=== PATIENT | female | born 1945 | race African-American/Black ===

== ENCOUNTER 2018-10-23 13:24 | Emergency (ER) | payer OTHER ==
[~2018-10-23] VITALS: Ht 165.1 cm; Wt 61.0 kg
[2018-10-23] MEDS ORDERED: ACETAMINOPHEN 325MG TABLET PO STA (13:44)
[2018-10-23 14:28] LABS: BASOPHILS % 0.4 % (0.0-2.0); EOSINOPHILS % 0.1 % (0.0-5.0); HEMATOCRIT. 29.7 % (36.0-48.0); LYMPHOCYTES % 19.8 % (20.0-50.0); MEAN CORPUSCULAR VOLUME 71.7 fL (81.0-99.0); MONOCYTES % 9.2 % (2.0-8.0); NEUTROPHILS % 70.5 % (40.0-76.0); PLATELET 189 x1000/uL (130-400); RED BLOOD CELL COUNT 4.14 mill/uL (4.2-5.4); RED CELL DISTRIBUTION WIDTH 17.3 % (11.6-14.6)
[2018-10-23 14:35] LABS: CHLORIDE 101 mEq/L (98-107)
[2018-10-23 14:38] LABS: D-DIMER 1.39 mg/L FEU (<0.50); INR 1.1; PROTHROMBIN TIME 11.4 sec (9.6-11.0)
[2018-10-23] MEDS ORDERED: SODIUM CHLORIDE 0.9% 1,000 ML IV ONE (17:33)
[2018-10-23 19:49] VITALS: BP 183/81
== END 2018-10-23 19:54 | disposition short-term general hospital (02) ==
LOC: ER 13:24
DX: N28.9 Disorder of kidney and ureter, unspecified (principal); M10.9 Gout, unspecified; I77.1 Stricture of artery; D64.9 Anemia, unspecified; I10 Essential (primary) hypertension
CPT/HCPCS: 36415; 73630; 83605; 83880; 84550; 85379; 85651; 86140; 93005; 93923; 93970; 99285

== ENCOUNTER 2021-05-14 23:40 | Inpatient (IN) | payer OTHER ==
[~2021-05-14] VITALS: Ht 147.3 cm; Wt 50.9 kg
[2021-05-15] VITALS (22 sets, daily range): BP systolic 79–107; BP diastolic 47–67
[2021-05-15] MEDS ORDERED: SODIUM CHLORIDE 0.9% 500 ML IV ONE
[2021-05-15 01:19] LABS: BASOPHILS % 0.3 % (0.0-2.0); EOSINOPHILS % 0.2 % (0.0-5.0); HEMATOCRIT. 30.7 % (36.0-48.0); HEMOGLOBIN. 10.7 g/dL (12.0-16.0); LYMPHOCYTES % 10.9 % (20.0-50.0); MEAN CORPUSCULAR VOLUME 86.1 fL (81.0-99.0); MEAN PLATELET VOLUME 9.4 fl (7.4-10.4); MONOCYTES % 3.1 % (2.0-8.0); NEUTROPHILS % 85.5 % (40.0-76.0); PLATELET 264 x1000/uL (130-400); RED BLOOD CELL COUNT 3.56 mill/uL (4.2-5.4); RED CELL DISTRIBUTION WIDTH 15.2 % (11.6-14.6)
[2021-05-15 01:23] LABS: CHLORIDE 97 mEq/L (98-107)
[2021-05-15] MEDS ORDERED: VANCOMYCIN 1G PREMIX 200 ML IV ONE (02:00)
[2021-05-15] MEDS ORDERED: PIPERACILLIN/TAZ 3.375G PREMIX 50 ML IV ONE (02:00)
[2021-05-15] MEDS ORDERED: ASPIRIN 325MG EC TABLET PO ONE (03:30)
[2021-05-15] MEDS: SEVELAMER CARBONATE 800 MG TABLET PO SCH ×3 (07:08→21:26)
[2021-05-15] MEDS: ACETAMINOPHEN 325MG TABLET PO PRN ×2 (08:26→14:01)
[2021-05-15] MEDS: CEFTRIAXONE 1,000 MG in DEXTROSE 5% WATER 50 ML IV SCH (08:27)
[2021-05-15] MEDS: FOLIC ACID/VITAMIN B COMP W-C TABLET PO SCH (08:36)
[2021-05-15] MEDS ORDERED: CEFTRIAXONE 1 G PREMIX 50 ML IV SCH (09:00)
[2021-05-15] MEDS: MIDODRINE HCL 5MG TABLET PO SCH ×3 (09:15→17:13)
[2021-05-15] MEDS ORDERED: POTASSIUM CHLORIDE 20MEQ TABLET SR PO NR (09:30)
[2021-05-15 09:40] LABS: BASOPHILS % 0.4 % (0.0-2.0); EOSINOPHILS % 0.1 % (0.0-5.0); HEMATOCRIT. 28.4 % (36.0-48.0); LYMPHOCYTES % 11.4 % (20.0-50.0); MEAN CORPUSCULAR VOLUME 84.9 fL (81.0-99.0); MEAN PLATELET VOLUME 9.1 fl (7.4-10.4); MONOCYTES % 4.8 % (2.0-8.0); NEUTROPHILS % 83.3 % (40.0-76.0); PLATELET 218 x1000/uL (130-400); RED BLOOD CELL COUNT 3.35 mill/uL (4.2-5.4); RED CELL DISTRIBUTION WIDTH 15.6 % (11.6-14.6)
[2021-05-15] MEDS ORDERED: SODIUM CHLORIDE 0.9% 250 ML IV ONE (11:00)
[2021-05-15 11:11] LABS: CREATINE KINASE 110 IU/L (26-192)
[2021-05-15 11:12] LABS: CREATINE KINASE MB FRACTION 9.9 ng/mL (0.5-3.6)
[2021-05-15 13:52] LABS: HEMATOCRIT 26.3 % (36.0-48.0); HEMOGLOBIN 9.2 g/dL (12.0-16.0); MEAN CORPUSCULAR HEMOGLOBIN 30.2 pg (28.0-32.0); MEAN CORPUSCULAR VOLUME 86.3 fL (81.0-99.0); PLATELET 218 x1000/uL (130-400); RED BLOOD CELL COUNT 3.04 mill/uL (4.2-5.4); RED CELL DISTRIBUTION WIDTH 15.1 % (11.6-14.6)
[2021-05-15] MEDS: OMEPRAZOLE 20MG CAPSULE EXTENDED RELEASE PO SCH (18:33)
[2021-05-15] MEDS: SUCRALFATE 1 G/10 ML UDC PO SCH (21:26)
[2021-05-16] VITALS (24 sets, daily range): BP systolic 78–109; BP diastolic 39–68
[2021-05-16] MEDS: SUCRALFATE 1 G/10 ML UDC PO SCH ×4 (06:02→23:27)
[2021-05-16] MEDS: OMEPRAZOLE 20MG CAPSULE EXTENDED RELEASE PO SCH (06:02)
[2021-05-16] MEDS: SEVELAMER CARBONATE 800 MG TABLET PO SCH ×3 (06:02→23:28)
[2021-05-16] MEDS: CEFTRIAXONE 1,000 MG in DEXTROSE 5% WATER 50 ML IV SCH (06:03)
[2021-05-16 07:15] LABS: PROTHROMBIN TIME 10.9 sec (9.6-11.0)
[2021-05-16 07:18] LABS: BASOPHILS % 0.5 % (0.0-2.0); EOSINOPHILS % 1.1 % (0.0-5.0); HEMOGLOBIN. 7.8 g/dL (12.0-16.0); LYMPHOCYTES % 16.7 % (20.0-50.0); MEAN CORPUSCULAR VOLUME 84.8 fL (81.0-99.0); MEAN PLATELET VOLUME 9.3 fl (7.4-10.4); MONOCYTES % 6.1 % (2.0-8.0); NEUTROPHILS % 75.6 % (40.0-76.0); PLATELET 175 x1000/uL (130-400); RED BLOOD CELL COUNT 2.59 mill/uL (4.2-5.4)
[2021-05-16] MEDS ORDERED: MIDO5TAB4 PO (08:28)
[2021-05-16] MEDS ORDERED: REN800 PO (08:30)
[2021-05-16] MEDS ORDERED: ATOR-2 PO (08:31)
[2021-05-16] MEDS ORDERED: GABA-529 PO (08:32)
[2021-05-16] MEDS ORDERED: CHOL2000 PO (08:33)
[2021-05-16] MEDS ORDERED: ASPI-1406 PO (08:34)
[2021-05-16] MEDS ORDERED: PANT40TA51 PO (08:35)
[2021-05-16] MEDS ORDERED: CINA60 PO (08:37)
[2021-05-16] MEDS: MIDODRINE HCL 5MG TABLET PO SCH ×3 (08:55→18:02)
[2021-05-16] MEDS: FOLIC ACID/VITAMIN B COMP W-C TABLET PO SCH (08:55)
[2021-05-16] MEDS: ACETAMINOPHEN 325MG TABLET PO PRN ×2 (08:56→14:47)
[2021-05-16] MEDS ORDERED: DICLOFENAC 1% GEL TOP PRN (19:45)
[2021-05-17] VITALS (59 sets, daily range): BP systolic 75–157; BP diastolic 33–91
[2021-05-17] MEDS: SEVELAMER CARBONATE 800 MG TABLET PO SCH ×3 (05:48→21:24)
[2021-05-17] MEDS: CEFTRIAXONE 1,000 MG in DEXTROSE 5% WATER 50 ML IV SCH (05:56)
[2021-05-17] MEDS: OMEPRAZOLE 20MG CAPSULE EXTENDED RELEASE PO SCH (05:56)
[2021-05-17] MEDS: SUCRALFATE 1 G/10 ML UDC PO SCH ×4 (05:56→21:24)
[2021-05-17] MEDS: FOLIC ACID/VITAMIN B COMP W-C TABLET PO SCH (08:53)
[2021-05-17] MEDS: MIDODRINE HCL 5MG TABLET PO SCH (08:53)
[2021-05-17 09:08] LABS: BASOPHILS % 0.3 % (0.0-2.0); EOSINOPHILS % 1.3 % (0.0-5.0); HEMATOCRIT. 27.2 % (36.0-48.0); HEMOGLOBIN. 9.2 g/dL (12.0-16.0); LYMPHOCYTES % 16.1 % (20.0-50.0); MEAN CORPUSCULAR HEMOGLOBIN 30.5 pg (28.0-32.0); MEAN CORPUSCULAR VOLUME 90.3 fL (81.0-99.0); MEAN PLATELET VOLUME 9.2 fl (7.4-10.4); MONOCYTES % 6.5 % (2.0-8.0); NEUTROPHILS % 75.8 % (40.0-76.0); PLATELET 133 x1000/uL (130-400); RED BLOOD CELL COUNT 3.01 mill/uL (4.2-5.4); RED CELL DISTRIBUTION WIDTH 15.2 % (11.6-14.6)
[2021-05-17] MEDS ORDERED: LIDOCAINE HCL 1% 10 MG/ML 10ML VIAL ONE (10:11)
[2021-05-17] MEDS: NOREPINEPHRINE 8 MG in DEXT 5% WATER 242 ML IV PRN ×2 (10:24→23:02)
[2021-05-17] MEDS ORDERED: DOPAMINE 400MG/250ML PREMIX 250 ML IV PRN (12:30)
[2021-05-17] MEDS: ACETAMINOPHEN 325MG TABLET PO PRN ×2 (16:36→23:01)
[2021-05-18] VITALS (75 sets, daily range): BP systolic 62–139; BP diastolic 30–87
[2021-05-18] MEDS: SEVELAMER CARBONATE 800 MG TABLET PO SCH ×4 (05:30→23:28)
[2021-05-18 05:43] LABS: BASOPHILS % 0.6 % (0.0-2.0); HEMATOCRIT. 34.1 % (36.0-48.0); HEMOGLOBIN. 11.6 g/dL (12.0-16.0); LYMPHOCYTES % 20.9 % (20.0-50.0); MEAN CORPUSCULAR HEMOGLOBIN 31.2 pg (28.0-32.0); MEAN CORPUSCULAR VOLUME 91.7 fL (81.0-99.0); MEAN PLATELET VOLUME 9.1 fl (7.4-10.4); MONOCYTES % 7.4 % (2.0-8.0); NEUTROPHILS % 70.1 % (40.0-76.0); PLATELET 145 x1000/uL (130-400); RED BLOOD CELL COUNT 3.72 mill/uL (4.2-5.4); RED CELL DISTRIBUTION WIDTH 15.3 % (11.6-14.6)
[2021-05-18] MEDS: CEFTRIAXONE 1,000 MG in DEXTROSE 5% WATER 50 ML IV SCH (06:49)
[2021-05-18] MEDS: OMEPRAZOLE 20MG CAPSULE EXTENDED RELEASE PO SCH (08:47)
[2021-05-18] MEDS: SUCRALFATE 1 G/10 ML UDC PO SCH ×4 (08:47→23:28)
[2021-05-18] MEDS: FOLIC ACID/VITAMIN B COMP W-C TABLET PO SCH (08:47)
[2021-05-18] MEDS: NOREPINEPHRINE 8 MG in DEXT 5% WATER 242 ML IV PRN ×2 (14:34→19:29)
[2021-05-18] MEDS: ACETAMINOPHEN 325MG TABLET PO PRN (17:22)
[2021-05-19] VITALS (84 sets, daily range): BP systolic 58–188; BP diastolic 13–93
[2021-05-19] MEDS: NOREPINEPHRINE 32 MG in DEXT 5% WATER 218 ML IV PRN ×2 (01:08→13:15)
[2021-05-19] MEDS ORDERED: PHENYLEPHRINE 50 MG in DEXT 5% WATER 245 ML IV PRN (01:30)
[2021-05-19] MEDS ORDERED: PHENYLEPHRINE 100 MG in DEXT 5% WATER 240 ML IV PRN (01:45)
[2021-05-19] MEDS: SEVELAMER CARBONATE 800 MG TABLET PO SCH ×3 (05:21→21:32)
[2021-05-19] MEDS: CEFTRIAXONE 1,000 MG in DEXTROSE 5% WATER 50 ML IV SCH (05:21)
[2021-05-19 07:02] LABS: BASOPHILS % 0.4 % (0.0-2.0); EOSINOPHILS % 0.7 % (0.0-5.0); HEMATOCRIT. 30.7 % (36.0-48.0); HEMOGLOBIN. 10.9 g/dL (12.0-16.0); LYMPHOCYTES % 14.4 % (20.0-50.0); MEAN CORPUSCULAR HEMOGLOBIN 30.9 pg (28.0-32.0); MEAN PLATELET VOLUME 9.5 fl (7.4-10.4); MONOCYTES % 5.1 % (2.0-8.0); NEUTROPHILS % 79.4 % (40.0-76.0); PLATELET 198 x1000/uL (130-400); RED BLOOD CELL COUNT 3.53 mill/uL (4.2-5.4); RED CELL DISTRIBUTION WIDTH 15.1 % (11.6-14.6)
[2021-05-19] MEDS: OMEPRAZOLE 20MG CAPSULE EXTENDED RELEASE PO SCH (09:04)
[2021-05-19] MEDS: FOLIC ACID/VITAMIN B COMP W-C TABLET PO SCH (09:04)
[2021-05-19] MEDS: SUCRALFATE 1 G/10 ML UDC PO SCH ×4 (09:05→21:32)
[2021-05-19] MEDS ORDERED: POTASSIUM CHLORIDE 20MEQ TABLET SR PO NR (09:15)
[2021-05-19] MEDS: MIDODRINE HCL 5MG TABLET PO SCH ×2 (13:38→18:06)
[2021-05-19] MEDS: ONDANSETRON HCL 4MG/2ML INJ IV PRN (13:38)
[2021-05-19] MEDS: TRAMADOL 50MG TABLET PO PRN (13:53)
[2021-05-19 18:29] LABS: CREATINE KINASE MB FRACTION 18.8 ng/mL (0.5-3.6)
[2021-05-20] VITALS (85 sets, daily range): BP systolic 72–162; BP diastolic 37–97
[2021-05-20] MEDS: ACETAMINOPHEN 325MG TABLET PO PRN ×2 (01:55→08:45)
[2021-05-20] MEDS: NOREPINEPHRINE 32 MG in DEXT 5% WATER 218 ML IV PRN ×2 (03:09→19:15)
[2021-05-20] MEDS: CEFTRIAXONE 1,000 MG in DEXTROSE 5% WATER 50 ML IV SCH (05:50)
[2021-05-20] MEDS: SEVELAMER CARBONATE 800 MG TABLET PO SCH ×3 (05:50→21:30)
[2021-05-20 06:00] LABS: BASOPHILS % 0.4 % (0.0-2.0); EOSINOPHILS % 0.8 % (0.0-5.0); HEMATOCRIT. 28.5 % (36.0-48.0); HEMOGLOBIN. 10.4 g/dL (12.0-16.0); LYMPHOCYTES % 16.6 % (20.0-50.0); MEAN CORPUSCULAR HEMOGLOBIN 31.5 pg (28.0-32.0); MEAN CORPUSCULAR VOLUME 86.6 fL (81.0-99.0); MEAN PLATELET VOLUME 9.3 fl (7.4-10.4); MONOCYTES % 5.3 % (2.0-8.0); NEUTROPHILS % 76.9 % (40.0-76.0); PLATELET 164 x1000/uL (130-400); RED BLOOD CELL COUNT 3.29 mill/uL (4.2-5.4); RED CELL DISTRIBUTION WIDTH 15.5 % (11.6-14.6)
[2021-05-20] MEDS: OMEPRAZOLE 20MG CAPSULE EXTENDED RELEASE PO SCH (08:46)
[2021-05-20] MEDS: FOLIC ACID/VITAMIN B COMP W-C TABLET PO SCH (08:46)
[2021-05-20] MEDS: SUCRALFATE 1 G/10 ML UDC PO SCH ×4 (08:46→21:30)
[2021-05-20] MEDS: MIDODRINE HCL 5MG TABLET PO SCH ×3 (08:47→18:41)
[2021-05-20] MEDS: ONDANSETRON HCL 4MG/2ML INJ IV PRN (08:55)
[2021-05-20] MEDS ORDERED: POTASSIUM CHLORIDE 20MEQ TABLET SR PO SCH (11:15)
[2021-05-20] MEDS: TRAMADOL 50MG TABLET PO PRN (12:35)
[2021-05-20] MEDS ORDERED: METOCLOPRAMIDE HCL 10MG/2ML VIAL ONE (20:17)
[2021-05-21] VITALS (95 sets, daily range): BP systolic 38–204; BP diastolic 30–157
[2021-05-21 05:50] LABS: BASOPHILS % 0.4 % (0.0-2.0); EOSINOPHILS % 1.4 % (0.0-5.0); HEMATOCRIT. 26.7 % (36.0-48.0); HEMOGLOBIN. 9.7 g/dL (12.0-16.0); LYMPHOCYTES % 12.4 % (20.0-50.0); MEAN CORPUSCULAR HEMOGLOBIN 31.4 pg (28.0-32.0); MEAN CORPUSCULAR VOLUME 86.3 fL (81.0-99.0); MEAN PLATELET VOLUME 9.2 fl (7.4-10.4); MONOCYTES % 5.5 % (2.0-8.0); NEUTROPHILS % 80.3 % (40.0-76.0); PLATELET 154 x1000/uL (130-400); RED CELL DISTRIBUTION WIDTH 15.7 % (11.6-14.6)
[2021-05-21 06:02] LABS: PHOSPHORUS 5.2 mg/dL (2.5-4.9)
[2021-05-21] MEDS: SEVELAMER CARBONATE 800 MG TABLET PO SCH ×3 (06:05→21:29)
[2021-05-21] MEDS: MIDODRINE HCL 5MG TABLET PO SCH ×3 (06:05→13:25)
[2021-05-21] MEDS ORDERED: POTASSIUM CHLORIDE 20MEQ TABLET SR PO NR (08:39)
[2021-05-21] MEDS ORDERED: MAGNESIUM 2 G PREMIX 50 ML IV NR (09:30)
[2021-05-21] MEDS: SUCRALFATE 1 G/10 ML UDC PO SCH ×4 (09:48→21:29)
[2021-05-21] MEDS: FOLIC ACID/VITAMIN B COMP W-C TABLET PO SCH ×2 (09:49→09:50)
[2021-05-21] MEDS: LEVOTHYROXINE SODIUM 25MCG TABLET PO SCH (09:49)
[2021-05-21] MEDS: OMEPRAZOLE 20MG CAPSULE EXTENDED RELEASE PO SCH (09:50)
[2021-05-21] MEDS: NOREPINEPHRINE 32 MG in DEXT 5% WATER 218 ML IV PRN (14:44)
[2021-05-21] MEDS: MIRTAZAPINE 15MG TABLET PO SCH (21:29)
[2021-05-22] VITALS (95 sets, daily range): BP systolic 42–154; BP diastolic 31–97
[2021-05-22] MEDS: SEVELAMER CARBONATE 800 MG TABLET PO SCH ×3 (05:12→20:33)
[2021-05-22] MEDS: MIDODRINE HCL 5MG TABLET PO SCH ×3 (05:12→22:04)
[2021-05-22] MEDS: NOREPINEPHRINE 32 MG in DEXT 5% WATER 218 ML IV PRN ×2 (05:13→20:24)
[2021-05-22 05:53] LABS: BASOPHILS % 0.4 % (0.0-2.0); EOSINOPHILS % 0.8 % (0.0-5.0); HEMATOCRIT. 26.4 % (36.0-48.0); HEMOGLOBIN. 9.4 g/dL (12.0-16.0); LYMPHOCYTES % 12.9 % (20.0-50.0); MEAN CORPUSCULAR HEMOGLOBIN 31.6 pg (28.0-32.0); MEAN CORPUSCULAR VOLUME 88.3 fL (81.0-99.0); MEAN PLATELET VOLUME 9.2 fl (7.4-10.4); MONOCYTES % 6.4 % (2.0-8.0); NEUTROPHILS % 79.5 % (40.0-76.0); PLATELET 151 x1000/uL (130-400); RED BLOOD CELL COUNT 2.99 mill/uL (4.2-5.4); RED CELL DISTRIBUTION WIDTH 15.3 % (11.6-14.6)
[2021-05-22 06:07] LABS: PHOSPHORUS 4.9 mg/dL (2.5-4.9)
[2021-05-22] MEDS: OMEPRAZOLE 20MG CAPSULE EXTENDED RELEASE PO SCH (08:27)
[2021-05-22] MEDS: LEVOTHYROXINE SODIUM 25MCG TABLET PO SCH (08:27)
[2021-05-22] MEDS: SUCRALFATE 1 G/10 ML UDC PO SCH ×4 (08:27→20:32)
[2021-05-22] MEDS ORDERED: NALOXONE HCL 0.4MG/ML VIAL IV PRN (10:30)
[2021-05-22] MEDS: MIRTAZAPINE 15MG TABLET PO SCH (20:33)
[2021-05-23] VITALS (101 sets, daily range): BP systolic 74–142; BP diastolic 28–74
[2021-05-23 06:08] LABS: BASOPHILS % 0.3 % (0.0-2.0); EOSINOPHILS % 0.9 % (0.0-5.0); HEMATOCRIT. 24.3 % (36.0-48.0); HEMOGLOBIN. 8.7 g/dL (12.0-16.0); LYMPHOCYTES % 11.3 % (20.0-50.0); MEAN CORPUSCULAR VOLUME 86.8 fL (81.0-99.0); MEAN PLATELET VOLUME 8.9 fl (7.4-10.4); MONOCYTES % 5.7 % (2.0-8.0); NEUTROPHILS % 81.8 % (40.0-76.0); PLATELET 159 x1000/uL (130-400); RED CELL DISTRIBUTION WIDTH 15.5 % (11.6-14.6)
[2021-05-23] MEDS: SEVELAMER CARBONATE 800 MG TABLET PO SCH ×3 (06:45→21:01)
[2021-05-23] MEDS: MIDODRINE HCL 5MG TABLET PO SCH ×3 (06:45→21:02)
[2021-05-23] MEDS: OMEPRAZOLE 20MG CAPSULE EXTENDED RELEASE PO SCH (08:55)
[2021-05-23] MEDS: FOLIC ACID/VITAMIN B COMP W-C TABLET PO SCH (08:55)
[2021-05-23] MEDS: LEVOTHYROXINE SODIUM 25MCG TABLET PO SCH (08:55)
[2021-05-23] MEDS: SUCRALFATE 1 G/10 ML UDC PO SCH ×4 (08:55→21:02)
[2021-05-23] MEDS: ONDANSETRON HCL 4MG/2ML INJ IV PRN (17:14)
[2021-05-23] MEDS: NOREPINEPHRINE 32 MG in DEXT 5% WATER 218 ML IV PRN (20:15)
[2021-05-23] MEDS: MIRTAZAPINE 15MG TABLET PO SCH (21:01)
[2021-05-24] VITALS (96 sets, daily range): BP systolic 80–138; BP diastolic 27–76
[2021-05-24 05:54] LABS: PHOSPHORUS 4.5 mg/dL (2.5-4.9)
[2021-05-24 06:14] LABS: BASOPHILS % 0.4 % (0.0-2.0); HEMATOCRIT. 25.5 % (36.0-48.0); HEMOGLOBIN. 9.1 g/dL (12.0-16.0); LYMPHOCYTES % 13.1 % (20.0-50.0); MEAN CORPUSCULAR HEMOGLOBIN 30.7 pg (28.0-32.0); MEAN CORPUSCULAR VOLUME 86.2 fL (81.0-99.0); MEAN PLATELET VOLUME 8.9 fl (7.4-10.4); MONOCYTES % 5.8 % (2.0-8.0); NEUTROPHILS % 79.7 % (40.0-76.0); PLATELET 158 x1000/uL (130-400); RED BLOOD CELL COUNT 2.96 mill/uL (4.2-5.4)
[2021-05-24] MEDS: MIDODRINE HCL 5MG TABLET PO SCH ×3 (06:18→21:23)
[2021-05-24] MEDS: SEVELAMER CARBONATE 800 MG TABLET PO SCH ×3 (06:19→21:23)
[2021-05-24] MEDS: SUCRALFATE 1 G/10 ML UDC PO SCH ×4 (08:34→21:23)
[2021-05-24] MEDS: OMEPRAZOLE 20MG CAPSULE EXTENDED RELEASE PO SCH (08:34)
[2021-05-24] MEDS: LEVOTHYROXINE SODIUM 25MCG TABLET PO SCH (08:34)
[2021-05-24] MEDS: FOLIC ACID/VITAMIN B COMP W-C TABLET PO SCH (08:34)
[2021-05-24] MEDS ORDERED: POTASSIUM CHLORIDE 20MEQ TABLET SR PO NR (12:00)
[2021-05-24] MEDS ORDERED: SODIUM CHLORIDE 3% 200 ML IV SCH (14:00)
[2021-05-24] MEDS ORDERED: FERR325T30 PO (16:51)
[2021-05-24] MEDS ORDERED: AMLO10TA80 PO (16:52)
[2021-05-24] MEDS ORDERED: SEVE800T8 PO (16:55)
[2021-05-24] MEDS ORDERED: CARV12.545 PO (16:56)
[2021-05-24] MEDS ORDERED: DORZ10DR9 BOTHEYE (16:57)
[2021-05-24] MEDS: ACETAMINOPHEN 325MG TABLET PO PRN (19:40)
[2021-05-24] MEDS: MIRTAZAPINE 15MG TABLET PO SCH (21:23)
[2021-05-25] VITALS (92 sets, daily range): BP systolic 49–179; BP diastolic 31–87
[2021-05-25] MEDS: NOREPINEPHRINE 32 MG in DEXT 5% WATER 218 ML IV PRN (03:39)
[2021-05-25] MEDS: SEVELAMER CARBONATE 800 MG TABLET PO SCH ×3 (05:09→22:20)
[2021-05-25] MEDS: MIDODRINE HCL 5MG TABLET PO SCH ×3 (05:09→22:21)
[2021-05-25 06:30] LABS: PHOSPHORUS 4.5 mg/dL (2.5-4.9)
[2021-05-25] MEDS: LEVOTHYROXINE SODIUM 25MCG TABLET PO SCH (07:59)
[2021-05-25] MEDS: OMEPRAZOLE 20MG CAPSULE EXTENDED RELEASE PO SCH (07:59)
[2021-05-25] MEDS: SUCRALFATE 1 G/10 ML UDC PO SCH ×4 (07:59→22:20)
[2021-05-25] MEDS: FOLIC ACID/VITAMIN B COMP W-C TABLET PO SCH (08:00)
[2021-05-25 08:39] LABS: BASOPHILS % 0.5 % (0.0-2.0); EOSINOPHILS % 1.4 % (0.0-5.0); HEMATOCRIT. 26.6 % (36.0-48.0); LYMPHOCYTES % 11.4 % (20.0-50.0); MEAN CORPUSCULAR HEMOGLOBIN 30.7 pg (28.0-32.0); MEAN CORPUSCULAR VOLUME 88.6 fL (81.0-99.0); MEAN PLATELET VOLUME 8.9 fl (7.4-10.4); MONOCYTES % 5.3 % (2.0-8.0); NEUTROPHILS % 81.4 % (40.0-76.0); PLATELET 162 x1000/uL (130-400); RED CELL DISTRIBUTION WIDTH 15.6 % (11.6-14.6)
[2021-05-25 08:46] LABS: HEMOGLOBIN. 9.2 g/dL (12.0-16.0)
[2021-05-25] MEDS: MIRTAZAPINE 15MG TABLET PO SCH (22:20)
[2021-05-26] VITALS (96 sets, daily range): BP systolic 42–153; BP diastolic 18–85
[2021-05-26 05:48] LABS: BASOPHILS % 0.5 % (0.0-2.0); HEMATOCRIT. 26.2 % (36.0-48.0); HEMOGLOBIN. 9.4 g/dL (12.0-16.0); LYMPHOCYTES % 11.5 % (20.0-50.0); MEAN CORPUSCULAR HEMOGLOBIN 31.1 pg (28.0-32.0); MEAN CORPUSCULAR VOLUME 87.1 fL (81.0-99.0); MEAN PLATELET VOLUME 8.9 fl (7.4-10.4); MONOCYTES % 6.6 % (2.0-8.0); NEUTROPHILS % 80.4 % (40.0-76.0); PLATELET 187 x1000/uL (130-400); RED BLOOD CELL COUNT 3.01 mill/uL (4.2-5.4); RED CELL DISTRIBUTION WIDTH 15.3 % (11.6-14.6)
[2021-05-26] MEDS: MIDODRINE HCL 5MG TABLET PO SCH ×3 (05:54→20:52)
[2021-05-26] MEDS: SEVELAMER CARBONATE 800 MG TABLET PO SCH ×3 (05:54→20:46)
[2021-05-26] MEDS: LEVOTHYROXINE SODIUM 25MCG TABLET PO SCH (08:50)
[2021-05-26] MEDS: SUCRALFATE 1 G/10 ML UDC PO SCH ×4 (08:50→20:46)
[2021-05-26] MEDS: OMEPRAZOLE 20MG CAPSULE EXTENDED RELEASE PO SCH (08:51)
[2021-05-26] MEDS: FOLIC ACID/VITAMIN B COMP W-C TABLET PO SCH (08:51)
[2021-05-26] MEDS: MIRTAZAPINE 15MG TABLET PO SCH (20:47)
[2021-05-26] MEDS: ACETAMINOPHEN 325MG TABLET PO PRN (20:48)
[2021-05-26] MEDS: NOREPINEPHRINE 32 MG in DEXT 5% WATER 218 ML IV PRN (21:28)
[2021-05-27] VITALS (94 sets, daily range): BP systolic 52–145; BP diastolic 30–82
[2021-05-27] MEDS: SEVELAMER CARBONATE 800 MG TABLET PO SCH ×3 (05:21→20:41)
[2021-05-27] MEDS: MIDODRINE HCL 5MG TABLET PO SCH ×3 (05:21→20:42)
[2021-05-27 05:53] LABS: BASOPHILS % 0.5 % (0.0-2.0); EOSINOPHILS % 1.5 % (0.0-5.0); HEMATOCRIT. 23.7 % (36.0-48.0); HEMOGLOBIN. 8.6 g/dL (12.0-16.0); LYMPHOCYTES % 13.8 % (20.0-50.0); MEAN CORPUSCULAR HEMOGLOBIN 31.5 pg (28.0-32.0); MEAN CORPUSCULAR VOLUME 86.4 fL (81.0-99.0); MEAN PLATELET VOLUME 8.8 fl (7.4-10.4); MONOCYTES % 6.5 % (2.0-8.0); NEUTROPHILS % 77.7 % (40.0-76.0); PLATELET 170 x1000/uL (130-400); RED BLOOD CELL COUNT 2.74 mill/uL (4.2-5.4)
[2021-05-27] MEDS: OMEPRAZOLE 20MG CAPSULE EXTENDED RELEASE PO SCH (07:59)
[2021-05-27] MEDS: SUCRALFATE 1 G/10 ML UDC PO SCH ×4 (07:59→20:41)
[2021-05-27] MEDS: LEVOTHYROXINE SODIUM 25MCG TABLET PO SCH (07:59)
[2021-05-27] MEDS: FOLIC ACID/VITAMIN B COMP W-C TABLET PO SCH (08:00)
[2021-05-27] MEDS ORDERED: POTASSIUM CHLORIDE 20MEQ TABLET SR PO NR (10:00)
[2021-05-27] MEDS: NOREPINEPHRINE 32 MG in DEXT 5% WATER 218 ML IV PRN (18:23)
[2021-05-27] MEDS: MIRTAZAPINE 15MG TABLET PO SCH (20:41)
[2021-05-28] VITALS (94 sets, daily range): BP systolic 71–159; BP diastolic 33–81
[2021-05-28] MEDS: MIDODRINE HCL 5MG TABLET PO SCH ×3 (05:40→21:07)
[2021-05-28] MEDS: SEVELAMER CARBONATE 800 MG TABLET PO SCH ×3 (05:40→21:07)
[2021-05-28 06:31] LABS: BASOPHILS % 0.3 % (0.0-2.0); EOSINOPHILS % 1.2 % (0.0-5.0); HEMATOCRIT. 24.4 % (36.0-48.0); HEMOGLOBIN. 8.8 g/dL (12.0-16.0); LYMPHOCYTES % 15.2 % (20.0-50.0); MEAN CORPUSCULAR HEMOGLOBIN 31.5 pg (28.0-32.0); MEAN CORPUSCULAR VOLUME 87.1 fL (81.0-99.0); MEAN PLATELET VOLUME 8.8 fl (7.4-10.4); NEUTROPHILS % 76.3 % (40.0-76.0); PLATELET 172 x1000/uL (130-400); RED CELL DISTRIBUTION WIDTH 14.8 % (11.6-14.6)
[2021-05-28] MEDS: OMEPRAZOLE 20MG CAPSULE EXTENDED RELEASE PO SCH (09:07)
[2021-05-28] MEDS: LEVOTHYROXINE SODIUM 25MCG TABLET PO SCH (09:07)
[2021-05-28] MEDS: FOLIC ACID/VITAMIN B COMP W-C TABLET PO SCH (09:09)
[2021-05-28] MEDS: SUCRALFATE 1 G/10 ML UDC PO SCH ×4 (09:09→21:07)
[2021-05-28] MEDS: MIRTAZAPINE 15MG TABLET PO SCH (21:07)
[2021-05-29] VITALS (65 sets, daily range): BP systolic 62–139; BP diastolic 14–77
[2021-05-29] MEDS: NOREPINEPHRINE 32 MG in DEXT 5% WATER 218 ML IV PRN ×2 (01:31→23:54)
[2021-05-29] MEDS: MIDODRINE HCL 5MG TABLET PO SCH ×3 (05:43→21:51)
[2021-05-29] MEDS: SEVELAMER CARBONATE 800 MG TABLET PO SCH ×3 (05:43→21:54)
[2021-05-29 05:49] LABS: BASOPHILS % 0.6 % (0.0-2.0); EOSINOPHILS % 0.4 % (0.0-5.0); HEMOGLOBIN. 8.6 g/dL (12.0-16.0); LYMPHOCYTES % 15.1 % (20.0-50.0); MEAN CORPUSCULAR HEMOGLOBIN 30.6 pg (28.0-32.0); MEAN PLATELET VOLUME 8.6 fl (7.4-10.4); NEUTROPHILS % 75.9 % (40.0-76.0); PLATELET 172 x1000/uL (130-400); RED BLOOD CELL COUNT 2.81 mill/uL (4.2-5.4); RED CELL DISTRIBUTION WIDTH 14.8 % (11.6-14.6)
[2021-05-29] MEDS: ACETAMINOPHEN 325MG TABLET PO PRN (07:30)
[2021-05-29] MEDS: LEVOTHYROXINE SODIUM 25MCG TABLET PO SCH (07:34)
[2021-05-29] MEDS: OMEPRAZOLE 20MG CAPSULE EXTENDED RELEASE PO SCH (07:34)
[2021-05-29] MEDS: FOLIC ACID/VITAMIN B COMP W-C TABLET PO SCH (07:34)
[2021-05-29] MEDS: SUCRALFATE 1 G/10 ML UDC PO SCH ×4 (07:50→21:53)
[2021-05-29 18:51] LABS: BG BASE EXCESS 3.5 mmol/L (-2.0-2.0); BG CARBOXYHEMOGLOBIN 0.3 % (0.5-1.5); BG DEOXYHEMOGLOBIN 3.2 % (0.0-5.0); BG FRACTION INSPIRED OXYGEN 21; BG HCO3 ACT 26.9 mmol/L (22.0-26.0); BG METHEMOGLOBIN 0.6 % (0.0-1.5); BG OXYGEN SATURATION 96.8 % (92.0-98.5); BG OXYHEMOGLOBIN 95.9 % (94.0-97.0); BG PCO2 35.4 mmHg (35.0-45.0); BG PH 7.498 (7.350-7.450); BG PO2 95.8 mmHg (75.0-100.0); BG SAMPLE SITE LEFT BRACHIAL; BG TOTAL HEMOGLOBIN 8.6 g/dL (12.0-18.0); BG VENT MODE ROOM AIR
[2021-05-29] MEDS: MIRTAZAPINE 15MG TABLET PO SCH (21:51)
[2021-05-30] VITALS (66 sets, daily range): BP systolic 78–134; BP diastolic 30–77
[2021-05-30 06:08] LABS: BASOPHILS % 0.6 % (0.0-2.0); EOSINOPHILS % 0.6 % (0.0-5.0); HEMATOCRIT. 26.3 % (36.0-48.0); HEMOGLOBIN. 9.2 g/dL (12.0-16.0); LYMPHOCYTES % 13.9 % (20.0-50.0); MEAN CORPUSCULAR HEMOGLOBIN 30.8 pg (28.0-32.0); MEAN CORPUSCULAR VOLUME 87.6 fL (81.0-99.0); MEAN PLATELET VOLUME 8.7 fl (7.4-10.4); MONOCYTES % 6.1 % (2.0-8.0); NEUTROPHILS % 78.8 % (40.0-76.0); PLATELET 186 x1000/uL (130-400); RED BLOOD CELL COUNT 3.01 mill/uL (4.2-5.4)
[2021-05-30] MEDS: MIDODRINE HCL 5MG TABLET PO SCH ×3 (06:20→21:12)
[2021-05-30] MEDS: SEVELAMER CARBONATE 800 MG TABLET PO SCH ×3 (06:20→22:03)
[2021-05-30] MEDS ORDERED: POTASSIUM CHLORIDE 20MEQ TABLET SR PO NR (08:15)
[2021-05-30] MEDS: SUCRALFATE 1 G/10 ML UDC PO SCH ×4 (08:58→21:11)
[2021-05-30] MEDS: FLUDROCORTISONE ACETATE 0.1MG TABLET PO SCH (08:59)
[2021-05-30] MEDS: FOLIC ACID/VITAMIN B COMP W-C TABLET PO SCH (11:01)
[2021-05-30] MEDS: OMEPRAZOLE 20MG CAPSULE EXTENDED RELEASE PO SCH (11:01)
[2021-05-30] MEDS: LEVOTHYROXINE SODIUM 25MCG TABLET PO SCH (11:01)
[2021-05-30] MEDS: MIRTAZAPINE 15MG TABLET PO SCH (21:11)
[2021-05-31] VITALS (11 sets, daily range): BP systolic 97–125; BP diastolic 51–73
[2021-05-31] MEDS: MIDODRINE HCL 5MG TABLET PO SCH ×2 (05:52→14:50)
[2021-05-31] MEDS: SEVELAMER CARBONATE 800 MG TABLET PO SCH ×2 (05:53→14:50)
[2021-05-31] MEDS: OMEPRAZOLE 20MG CAPSULE EXTENDED RELEASE PO SCH (07:50)
[2021-05-31] MEDS: LEVOTHYROXINE SODIUM 25MCG TABLET PO SCH (07:50)
[2021-05-31] MEDS: SUCRALFATE 1 G/10 ML UDC PO SCH ×2 (07:50→12:54)
[2021-05-31] MEDS: FLUDROCORTISONE ACETATE 0.1MG TABLET PO SCH (08:40)
[2021-05-31] MEDS: FOLIC ACID/VITAMIN B COMP W-C TABLET PO SCH (11:00)
[2021-05-31] MEDS ORDERED: MIDO5TAB4 PO (13:29)
== END 2021-05-31 18:41 | disposition home or self-care (01) | DRG 720 ==
LOC: EDBD 23:40 → ER 23:40 → EDBEDREQ 23:58 → EDBEDREQTM 23:58 → 3WST 05-15 03:24 → EDBEDREQ 05-15 03:26 → EDBEDREQTM 05-15 03:26 → EDBEDREQDT 05-15 03:26 → ENRESERV 05-15 03:39 → CVICU 05-17 09:35 → 5EST 05-31 09:22
PROVIDERS: ADMIT Internal Medicine; ATTEND Internal Medicine
PROC: 30233N1 Transfusion of Nonautologous Red Blood Cells into Peripheral Vein, Percutaneous Approach (ICD-10-PCS; 2021-05-16)
PROC: 05HY33Z Insertion of Infusion Device into Upper Vein, Percutaneous Approach (ICD-10-PCS; principal; 2021-05-17)
PROC: B54MZZA Ultrasonography of Right Upper Extremity Veins, Guidance (ICD-10-PCS; 2021-05-17)
DX: A41.9 Sepsis, unspecified organism (principal); I21.4 Non-ST elevation (NSTEMI) myocardial infarction; R65.21 Severe sepsis with septic shock; R57.8 Other shock; E44.0 Moderate protein-calorie malnutrition; E87.2 Acidosis; K92.2 Gastrointestinal hemorrhage, unspecified; E87.1 Hypo-osmolality and hyponatremia; G90.8 Other disorders of autonomic nervous system; I12.0 Hypertensive chronic kidney disease with stage 5 chronic kidney disease or end stage renal disease; D64.9 Anemia, unspecified; N18.6 End stage renal disease; R73.9 Hyperglycemia, unspecified; E87.6 Hypokalemia; R19.7 Diarrhea, unspecified; E87.8 Other disorders of electrolyte and fluid balance, not elsewhere classified; E79.0 Hyperuricemia without signs of inflammatory arthritis and tophaceous disease; I49.3 Ventricular premature depolarization; Z99.2 Dependence on renal dialysis; Z87.11 Personal history of peptic ulcer disease; Z79.82 Long term (current) use of aspirin; Z79.899 Other long term (current) drug therapy; Z68.23 Body mass index [BMI] 23.0-23.9, adult; I25.2 Old myocardial infarction; Z80.0 Family history of malignant neoplasm of digestive organs; Z87.442 Personal history of urinary calculi; R94.6 Abnormal results of thyroid function studies
CPT/HCPCS: 36415; 36556; 36600; 71045; 76937; 78580; 80048; 80053; 80061; 80202; 82024; 82088; 82270; 82375; 82533; 82550; 82553; 82607; 82728; 82746; 82805; 82962; 83540; 83550; 83605; 83735; 83835; 83880; 83930; 84100; 84145; 84443; 84484; 85018; 85025; 85027; 85044; 86850; 86900; 86920; 93005; 93306; 93970; 99291; A6261; C1725; C1752; J0696; J1265; J2405; J2543; J2765; J3370; J3475; J3490; J7040; J7060; P9016